=== PATIENT | male | born 1935 | race Caucasian/White ===

== ENCOUNTER → 2024-03-24 08:28 | Outpatient (REF) | payer MEDICARE, BC, SELFPAY | LOC: RAD 08:28 | PROVIDERS: ATTENDING PHYSICIAN Internal Medicine | DX: I73.9 Peripheral vascular disease, unspecified (principal) | CPT/HCPCS: 93922 ==

== ENCOUNTER → 2024-05-17 13:22 | Outpatient (REF) | payer OTHER, SELFPAY | LOC: RAD 13:22 | PROVIDERS: FAMILY PHYSICIAN Internal Medicine | DX: M99.03 Segmental and somatic dysfunction of lumbar region (principal); M51.360 Other intervertebral disc degeneration, lumbar region with discogenic back pain only | CPT/HCPCS: 72110 ==